=== PATIENT | female | born 2000 ===

== ENCOUNTER 2020-04-03 09:03 | Inpatient (IN) | payer OTHER ==
[2020-04-03] MEDS ORDERED: ONDANSETRON 4 MG/2 ML INJ IV PRN ×2 (10:00→18:14)
[2020-04-03] MEDS ORDERED: LACTATED RINGERS 1,000 ML ONE (10:00)
[2020-04-03] MEDS ORDERED: ePHEDrine SULFATE 50 MG/1 ML INJ IV PRN (10:00)
[2020-04-03] MEDS ORDERED: ACETAMINOPHEN 325 MG TAB PO PRN (10:00)
[2020-04-03] MEDS ORDERED: LACTATED RINGERS 1,000 ML IV SCH (10:00)
[2020-04-03] MEDS ORDERED: TERBUTALINE 1 MG/1 ML INJ SUB-Q PRN (10:00)
[2020-04-03] MEDS ORDERED: NALOXONE 0.4 MG/1 ML INJ IV PRN (10:00)
[2020-04-03] MEDS ORDERED: miSOPROStol 200 MCG TAB PR PRN (10:00)
[2020-04-03] MEDS ORDERED: LIDOCAINE (2%) 20 MG/1 ML VIAL 20 ML MDV INFILTRATI ONE ×2 (10:00→17:28)
[2020-04-03] MEDS ORDERED: AMPICILLIN/NS 2 GM/100 ML 2 GM/100 ML BAG IV ONE ×2 (10:00)
[2020-04-03] MEDS ORDERED: BUTORPHANOL 2 MG/1 ML INJ IV PRN (10:00)
[2020-04-03] MEDS ORDERED: OXYTOCIN DRIP 30 UNITS/500 ML BAG IV SCH ×2 (10:00)
[2020-04-03 10:46] LABS: Hematocrit 30.7 % (30.3-42.9); Hemoglobin 10.2 gm/dl (10.1-14.3); Mean Corpuscular HGB Conc 33 % (30-34); Mean Corpuscular Volume 81 fl (79-97); Platelet Count 248 K/mm3 (140-440); Red Blood Count 3.79 M/mm3 (3.65-5.03); Red Cell Distribution Width 14.9 % (13.2-15.2)
[2020-04-03] MEDS ORDERED: AMPICILLIN/NS 1 GM/50 ML 1 GM/50 ML BAG IV SCH (14:01)
[2020-04-03] MEDS: fentaNYL 100 MCG/2 ML INJ IV PRN ×2 (14:38→16:39)
[2020-04-03] MEDS ORDERED: MINERAL OIL 30 ML ORAL LIQD ONE (17:04)
--- NOTE | 2020-04-03 18:13 | History and Physical Report ---
History of Present Illness Date of examination: 04/03/20 Date of admission: 04/03/20 10:00 Chief complaint: Contractions History of present illness: 19-year-old G1, P0 at 39+2 weeks who presents with a complaint of possible leakage of fluid. The patient was found to be intact however she was having regular uterine contractions and advanced cervical dilatation of 6 cm. Her GBS status is unknown. Past History Past Medical History: no pertinent history Past Surgical History: no surgical history Social history: single - Obstetrical History Expected Date of Delivery: 04/08/20 Actual Gestation: 39 Week(s) 2 Day(s) : 1 Para: 0 Hx # Term Pregnancies: 0 Number of Pregnancies: 0 Spontaneous Abortions: 0 Induced : 0 Number of Living Children: 0 Medications and Allergies Allergies Allergy/AdvReac Type Severity Reaction Status Date / Time No Known Allergies Allergy Verified 04/03/20 09:20 Home Medications Medication Instructions Recorded Confirmed Last Taken Type Ferrous Sulfate [Ferrous Sulfate 324 mg PO 04/03/20 04/02/20 History 324 MG] Active Meds: Active Medications Acetaminophen (Acetaminophen 325 Mg Tab) 650 mg PO Q4H PRN PRN Reason: Pain, Mild (1-3) Butorphanol Tartrate (Butorphanol 2 Mg/1 Ml Inj) 2 mg IV Q2H PRN PRN Reason: Pain , Severe (7-10) Ephedrine Sulfate (Ephedrine Sulfate 50 Mg/1 Ml Inj) 10 mg IV Q2M PRN PRN Reason: Hypotension Fentanyl (Fentanyl 100 Mcg/2 Ml Inj) 100 mcg IV Q2H PRN PRN Reason: Pain,Severe (7-10) LABOR PAIN Last Admin: 04/03/20 16:39 Dose: 100 mcg Documented by: Oxytocin/Sodium Chloride (Pitocin/Ns 30 Unit/500ml) 30 units in 500 mls @ 2 mls/hr IV TITR JACKSON; Protocol Last Titration: 04/03/20 17:23 Dose: 2 ml/hr, 2 mls/hr Documented by: Lactated Ringer's (Lactated Ringers) 1,000 mls @ 125 mls/hr IV DIRECT JACKSON Last Admin: 04/03/20 10:33 Dose: 125 mls/hr Documented by: Oxytocin/Sodium Chloride (Pitocin/Ns 30 Unit/500ml) 30 units in 500 mls @ 40 mls/hr IV TITR JACKSON; Protocol Ampicillin Sodium (Ampicillin/Ns 1 Gm/50 Ml) 1 gm in 50 mls @ 100 mls/hr IV Q4H JACKSON; Protocol Last Admin: 04/03/20 14:28 Dose: 100 mls/hr Documented by: Mineral Oil (Mineral Oil 30 Ml Oral Liqd) 30 ml PO QHS PRN PRN Reason: Constipation Misoprostol (Misoprostol 200 Mcg Tab) 800 mcg AR ONCE PRN PRN Reason: Uterine Bleeding Naloxone HCl (Naloxone 0.4 Mg/1 Ml Inj) 0.1 mg IV Q2MIN PRN PRN Reason: Res Rate </= 8 or 02 SAT < 92% Ondansetron HCl (Ondansetron 4 Mg/2 Ml Inj) 4 mg IV Q8H PRN PRN Reason: Nausea And Vomiting Terbutaline Sulfate (Terbutaline 1 Mg/1 Ml Inj) 0.25 mg SUB-Q ONCE PRN PRN Reason: Hyperstimulation/Hypertonicity Review of Systems All systems: negative Genitourinary: contractions - Vital Signs Vital signs: Vital Signs Temp Pulse Resp BP Pulse Ox 98.3 F 103 H 18 104/62 98 04/03/20 09:28 04/03/20 09:28 04/03/20 09:28 04/03/20 09:28 04/03/20 09:28 Temp Pulse Resp BP Pulse Ox 98.4 F 171 H 16 172/113 100 04/03/20 12:00 04/03/20 17:59 04/03/20 12:00 04/03/20 17:59 04/03/20 17:43 - Physical Exam Breasts: Positive: deferred Cardiovascular: Regular rate Lungs: Positive: Clear to auscultation - Obstetrical Cervical Dilatation: 6 Results Result Diagrams: 04/03/20 10:09 Abnormal lab results 04/03/20 Range/Units 10:09 WBC 14.6 H (4.5-11.0) K/mm3 MCH 27 L (28-32) pg All other labs normal. Assessment and Plan - Patient Problems (1) Active labor at term Current Visit: Yes Status: Acute Plan to address problem: Admit to labor and delivery Initiate IV antibiotics
[2020-04-03] MEDS ORDERED: HYDROcodone/ACETAMINOPHEN 5-325 MG TAB PO PRN (18:14)
[2020-04-03] MEDS ORDERED: MAGNESIUM HYDROXIDE (MOM) ORAL LIQD UDC PO PRN (18:14)
[2020-04-03] MEDS ORDERED: LANOLIN/ZINC/DIMETHICONE (LANSINOH) 7 GM TP PRN (18:14)
[2020-04-03] MEDS ORDERED: PROMETHAZINE 25 MG TAB PO PRN (18:14)
[2020-04-03] MEDS ORDERED: PROMETHAZINE 25 MG RECT SUPP PR PRN (18:14)
[2020-04-03] MEDS ORDERED: diphenhydrAMINE 25 MG CAP PO PRN (18:14)
[2020-04-03] MEDS ORDERED: WITCH HAZEL/ GLYCERIN PAD TP PRN (18:14)
--- NOTE | 2020-04-03 18:14 | Procedure Note ---
OB Delivery Note - Delivery Date of Delivery: 04/03/20 Surgeon: GOVIND BEAVERS Estimated blood loss: other (250 mL) - Vaginal Delivery presentation: vertex Delivery position: OA Intrapartum events: none Delivery induction: AROM Delivery augmentation: pitocin Delivery monitor: external FHT, external uterine Route of delivery: Delivery placenta: spontaneous Delivery cord: 3 umbilical vessels Episiotomy: none Delivery laceration: 1st degree Anesthesia: none - A at 1 minute: 8 at 5 minutes: 9 Infant Gender: Male (Weight 7 pounds 10 ounces)
[2020-04-03] MEDS ORDERED: MINERAL OIL 30 ML ORAL LIQD PO PRN (22:00)
[2020-04-03] MEDS: IBUPROFEN 600 MG TAB PO SCH (22:08)
[2020-04-04] MEDS: IBUPROFEN 600 MG TAB PO SCH ×3 (05:29→17:43)
[2020-04-04 08:57] LABS: Hematocrit 25.6 % (30.3-42.9); Hemoglobin 8.4 gm/dl (10.1-14.3)
--- NOTE | 2020-04-04 10:17 | Progress Note ---
Assessment and Plan A: PPD#1 s/p at term, GBS adequately treated P: Routine care. Discharge tonight per pt request Subjective - Subjective Date of service: 04/04/20 Principal diagnosis: s/p at term Interval history: Pt without complaints. Asks to go home tonight if possible. No overnight events. Patient reports: appetite normal, voiding normally, pain well controlled, ambulating normally [place]: doing well Objective - Vital Signs Latest vital signs: Vital Signs Temp Pulse Resp BP BP Pulse Ox 04/04/20 08:16 98.0 F 69 18 91/52 100 04/04/20 00:16 98.0 F 83 20 92/44 97 04/03/20 21:15 98.2 F 95 H 20 99/60 97 04/03/20 19:24 109 H 98 04/03/20 19:19 111 H 98 04/03/20 19:14 102 H 97 04/03/20 19:09 114 H 97 04/03/20 19:04 102 H 97 04/03/20 18:59 106 H 96/51 96 04/03/20 18:58 99.4 F 98 H 96/51 04/03/20 18:54 105 H 96 04/03/20 18:52 105 H 93 04/03/20 18:49 112 H 97 04/03/20 18:46 98.5 F 16 04/03/20 18:44 108 H 91/52 96 04/03/20 18:39 127 H 97 04/03/20 18:34 128 H 96 04/03/20 18:30 98.6 F 14 99/58 04/03/20 18:29 131 H 97 04/03/20 18:24 133 H 97 04/03/20 18:19 132 H 96 04/03/20 18:18 129 H 97/56 04/03/20 18:15 99.2 F 18 96/53 04/03/20 17:59 171 H 172/113 04/03/20 17:43 111 H 100 04/03/20 17:38 124 H 100 04/03/20 17:33 112 H 100 04/03/20 17:28 91 H 100 04/03/20 17:23 96 H 100 04/03/20 17:18 126 H 100 04/03/20 17:13 103 H 100 04/03/20 17:08 134 H 100 04/03/20 17:03 103 H 100 04/03/20 16:59 96 H 115/71 04/03/20 16:58 122 H 100 04/03/20 16:53 84 99 04/03/20 16:48 107 H 93 04/03/20 16:43 81 98 04/03/20 16:40 95 H 89 04/03/20 16:38 103 H 91 04/03/20 16:34 92 H 94 04/03/20 16:33 81 98 04/03/20 16:28 80 100 04/03/20 16:23 100 H 99 04/03/20 16:18 116 H 100 04/03/20 16:13 127 H 99 04/03/20 16:08 112 H 100 04/03/20 16:03 92 H 99 04/03/20 16:00 98.3 F 20 04/03/20 15:58 110 H 111/79 100 04/03/20 15:53 94 H 97 04/03/20 15:48 91 H 99 04/03/20 15:43 83 99 04/03/20 15:38 85 99 04/03/20 15:33 88 97 04/03/20 15:28 83 97 04/03/20 15:23 94 H 100 04/03/20 15:18 89 99 04/03/20 15:13 81 97 04/03/20 15:08 84 98 04/03/20 15:03 89 98 04/03/20 14:58 106 H 104/64 98 04/03/20 14:53 95 H 98 04/03/20 14:48 86 97 04/03/20 14:43 83 97 04/03/20 14:38 87 99 04/03/20 14:33 97 H 98 04/03/20 14:28 91 H 99 04/03/20 14:23 89 100 04/03/20 14:18 85 98 04/03/20 14:13 97 H 98 04/03/20 14:08 98 H 98 04/03/20 14:03 95 H 98 04/03/20 14:00 90 103/66 04/03/20 13:58 89 98 04/03/20 13:53 98 H 99 04/03/20 13:48 92 H 99 04/03/20 13:43 91 H 98 04/03/20 13:38 82 100 04/03/20 13:33 93 H 98 04/03/20 13:28 90 99 04/03/20 13:23 96 H 99 04/03/20 13:18 109 H 98 04/03/20 13:13 90 98 04/03/20 13:08 90 98 04/03/20 13:03 89 98 04/03/20 13:00 82 109/71 04/03/20 12:58 95 H 99 04/03/20 12:53 98 H 98 04/03/20 12:48 88 98 04/03/20 12:43 90 98 04/03/20 12:38 98 H 98 04/03/20 12:33 94 H 98 04/03/20 12:28 77 99 04/03/20 12:23 100 H 98 04/03/20 12:18 77 99 04/03/20 12:13 80 98 04/03/20 12:08 87 98 04/03/20 12:03 94 H 98 04/03/20 12:00 98.4 F 73 16 105/63 04/03/20 11:58 85 99 04/03/20 11:53 85 98 04/03/20 11:48 90 97 04/03/20 11:43 99 H 98 04/03/20 11:38 105 H 98 04/03/20 11:33 84 98 04/03/20 11:28 75 98 04/03/20 11:23 83 97 04/03/20 11:18 90 97 04/03/20 11:13 99 H 97 04/03/20 11:08 102 H 98 04/03/20 11:03 97 H 98 04/03/20 10:59 80 104/63 04/03/20 10:58 83 99 04/03/20 10:53 84 98 04/03/20 10:48 114 H 97 04/03/20 10:43 116 H 99 04/03/20 10:38 83 99 04/03/20 10:33 82 98 04/03/20 10:28 97 H 97 04/03/20 10:23 91 H 96 04/03/20 10:18 105 H 97 Intake and Output 04/03/20 04/04/20 04/04/20 22:59 06:59 14:59 Intake Total 1060.834 120 Output Total 600 400 Balance 460.834 -400 120 Intake: IV 940.834 Lactated Ringers 1,000 ml 935.417 @ 125 mls/hr IV DIRECT JACKSON Rx#:[id number] PITOCin/NS 30 UNIT/500ML 5.417 30 units In 500 ml @ 2 mls/hr IV TITR JACKSON Rx#: [id number] Oral 120 120 Output: Urine 600 400 Void 600 400 Other: Total, Intake Amount 120 120 Total, Output Amount 600 400 # Voids Void 2 Estimated Blood Loss 250 - Exam Breasts: Present: deferred Abdomen: Present: soft Uterus: Present: fundal height below umbilicus Extremities: Present: normal, edema - Labs Labs: Abnormal lab results 04/03/20 04/04/20 Range/Units 10:09 08:19 WBC 14.6 H (4.5-11.0) K/mm3 Hgb 8.4 L (10.1-14.3) gm/dl Hct 25.6 L (30.3-42.9) % MCH 27 L (28-32) pg
[2020-04-04] MEDS ORDERED: BENZOCAINE/MENTHOL 20/0.5% TOP SPRAY 56 GM TP PRN (10:18)
--- NOTE | 2020-04-04 10:18 | Discharge Summary ---
Providers - Providers Date of Admission: 04/03/20 10:00 Date of discharge: 04/04/20 Attending physician: GOVIND BEAVERS Primary care physician: GOVIND BEAVERS Hospitalization Reason for admission: active labor, rupture of membranes Delivery: Procedure details: Please see delivery note. Episiotomy: none Laceration: 1st degree Other procedures: none complications: none Discharge diagnosis: IUP at term delivered baby: male Hospital course: Pt was admitted with rupture of membranes and active labor at term. She went on to have a spontaneous vaginal delivery which she tolerated well. She will follow up in the office in 4 wks. Condition at discharge: Stable Disposition: TO HOME OR SELFCARE - Discharge Diagnoses (1) Term of male Status: Acute (2) Anemia Status: Acute Qualifiers: Anemia type: unspecified type Qualified Code(s): D64.9 - Anemia, unspecified (3) Active labor at term Status: Acute Plan - Discharge Medications Prescriptions: Ferrous Sulfate [Feosol 325 MG tab] 325 mg PO BID #60 tablet Ibuprofen [Motrin] 600 mg PO Q6H PRN #30 tablet PRN Reason: Pain - Provider Discharge Summary Activity: routine, no sex for 6 weeks, no heavy lifting 4 weeks, no strenuous exercise Diet: routine Instructions: routine Additional instructions: [] Smoking cessation referral if applicable(refer to patient education folder for contact #) [] Refer to [facility] Booklet Call your doctor immediately for: * Fever > 100.5 * Heavy vaginal bleeding ( >1 pad per hour) * Severe persistent headache * Shortness of breath * Reddened, hot, painful area to leg or breast * Drainage or odor from incision. * Keep incision clean and dry at all times and follow doctor's instructions regarding bathing/showering - Follow up plan Follow up: JOSE PEREZ CNM [Advanced Practice Nurse] - 05/03/20 (Please call to schedule a appt )
[2020-04-04 18:25] VITALS: BP 101/48
== END 2020-04-04 20:30 | disposition home or self-care (01) | DRG 807 ==
LOC: TRG 09:03 → APU 09:04 → TRG 10:00 → LD 10:00 → OB 20:21
PROVIDERS: ADMIT Obstetrics & Gynecology; ATTEND Obstetrics & Gynecology
PROC: 10E0XZZ Delivery of Products of Conception, External Approach (ICD-10-PCS; principal; 2020-04-03)
PROC: 0HQ9XZZ Repair Perineum Skin, External Approach (ICD-10-PCS; 2020-04-03)
PROC: 10907ZC Drainage of Amniotic Fluid, Therapeutic from Products of Conception, Via Natural or Artificial Opening (ICD-10-PCS; 2020-04-03)
DX: O70.0 First degree perineal laceration during delivery (principal); Z37.0 Single live birth; O99.02 Anemia complicating childbirth; Z20.822 Contact with and (suspected) exposure to COVID-19; Z3A.39 39 weeks gestation of pregnancy; Z79.899 Other long term (current) drug therapy
CPT/HCPCS: 36415; 59025; 85014; 85018; 85027; 86592; 86850; 86900; 86901; 96360; G0378; J0290; J2590; J3010; J7120; U0003